=== PATIENT | female | born 1945 | race Caucasian/White ===

== ENCOUNTER → 2017-05-07 | Outpatient (CLI) | payer MEDICARE, OTHER ==
--- NOTE | 2017-05-07 16:07 | BD ---
EXAMINATION TYPE: MG DEXA axial skeleton. DATE OF EXAM: 05/07/2017 COMPARISON: 2010 CLINICAL HISTORY: 72-year-old female menopausal Height: 5'1/2 Weight: 174 FRAX RISK QUESTIONS: Alcohol (3 or more units per day): no Family History (Parent hip fracture): no Glucocorticoids (More than 3mos): no (Ex: prednisone, prednisolone, methylprednisolone, dexamethasone, and hydrocortisone). History of Fracture in Adulthood: no Secondary Osteoporosis: 1. Type 1 Diabetes: no 2. Hyperthyroidism: no 3. Menopause before 45: no 4. Malnutrition: no 5. Chronic liver disease: no Rheumatoid Arthritis: no Current Tobacco Use: no RISK FACTORS HISTORY OF: Diet low in dairy products/other sources of calcium: yes Postmenopausal woman: yes MEDICATIONS: Thyroid Medications: Which medication: Levothyroxine How Lon years Additional Medications: blood pressure, cholesterol, eye drops for glaucoma Additional History: menopausal EXAM MEASUREMENTS: Bone mineral densitometry was performed using the [employer]. Bone mineral density as measured about the Lumbar spine is: ----- L1-L4(G/cm2): 1.126 T Score Values are as follows: ----- L2: -0.8 ----- L3: 0.2 ----- L4: -0.6 ----- L1-L4: -0.5 Bone mineral density has: Decreased -1.1% since study of: 11/08/2010 Bone mineral density about the R hip (g/cm2): 0.868 Bone mineral density about the L hip (g/cm2): 0.823 T Score values are as follows: -----R Neck: -1.2 -----L Neck: -1.5 -----R Total: -0.1 -----L Total: -0.5 Bone mineral density has: Decreased -1.8% since study of: 11/08/2010 IMPRESSION: Osteopenia as indicated by T score values in both hips. There is slightly increased risk of fracture and the patient may be considered for treatment. Re-Screen 2-5 years. NOTE: T-SCORE=SD OF THE YOUNG ADULT MEAN.
--- NOTE | 2017-05-09 07:00 | MM ---
Reason for exam: screening (asymptomatic). Last mammogram was performed 3 years and 2 months ago. History: Patient is postmenopausal. Family history of premenopausal breast cancer in mother. Physical Findings: A clinical breast exam by your physician is recommended on an annual basis and results should be correlated with mammographic findings. MG Screening Mammo w CAD Bilateral CC and MLO view(s) were taken. Prior study comparison: March 04, 2014, bilateral MG screening mammo w CAD. January 04, 2012, bilateral digital screening mammo w/CAD. There are scattered fibroglandular densities. No significant changes when compared with prior studies. ASSESSMENT: Negative, BI-RAD 1 RECOMMENDATION: Routine screening mammogram of both breasts in 1 year.
== END | disposition home or self-care (01) ==
LOC: RADMAMWWP 12:59
PROVIDERS: ATTEND Family Medicine
DX: Z12.31 Encounter for screening mammogram for malignant neoplasm of breast (principal); M85.80 Other specified disorders of bone density and structure, unspecified site; Z78.0 Asymptomatic menopausal state
CPT/HCPCS: 77080; G0202

== ENCOUNTER → 2019-01-31 | Outpatient (CLI) | payer MEDICARE, OTHER ==
--- NOTE | 2019-02-03 10:25 | MM ---
Reason for exam: screening (asymptomatic). Last mammogram was performed 1 year and 9 months ago. History: Patient is postmenopausal. Family history of premenopausal breast cancer in mother. Physical Findings: A clinical breast exam by your physician is recommended on an annual basis and results should be correlated with mammographic findings. MG 3D Screening Mammo W/Cad Bilateral CC and MLO view(s) were taken. Prior study comparison: May 07, 2017, bilateral MG screening mammo w CAD. March 04, 2014, bilateral MG screening mammo w CAD. There are scattered fibroglandular densities. No significant changes when compared with prior studies. ASSESSMENT: Benign, BI-RAD 2 RECOMMENDATION: Routine screening mammogram of both breasts in 1 year.
== END ==
LOC: RADMAMWWP 13:19
PROVIDERS: ATTEND Family Medicine
DX: Z12.31 Encounter for screening mammogram for malignant neoplasm of breast (principal)
CPT/HCPCS: 77063; 77067

== ENCOUNTER 2024-10-23 12:26 | Day surgery (SDC) | payer MEDICARE, OTHER ==
[~2024-10-23 12:26] MED LIST: LACTATED RINGERS 1,000 ML IV SCH; LIDOCAINE 1% (10MG/ML) FOR IV START INTRADERMA PRN; ONDANSETRON 4 MG/2 ML VIAL IVP PRN; fentaNYL (PF) 50 MCG/ML 2 ML AMP IV PRN
[2024-10-23] MEDS: IV FLUID CONTINUATION 1,000 ML IV ONE (13:09)
[2024-10-23 13:18] VITALS: TEMP 97.8
[2024-10-23] MEDS: LIDOCAINE 2% INJ 20 MG/ML INTRATRACH ONE ×2 (13:21→13:36)
[2024-10-23] MEDS: LACTATED RINGERS 1,000 ML IV SCH (13:22)
[2024-10-23] MEDS ORDERED: LIDOCAINE 1% INJ 10MG/ML (20 ML MDV) ONE (13:28)
[2024-10-23] MEDS ORDERED: PROPOFOL 10 MG/ML 20 ML VIAL IV ONE (13:28)
[2024-10-23 13:56] VITALS: PULSE 93
[2024-10-23 14:16] VITALS: BP 161/73; RESP 16
--- NOTE | 2024-10-23 19:58 | OP ---
OPERATIVE REPORT DATE OF SERVICE : PROCEDURE: Bronchoscopy and bronchoalveolar lavage of the right upper lobe. PREOPERATIVE DIAGNOSIS: Hemoptysis. POSTOPERATIVE DIAGNOSIS: Hemoptysis secondary to fragile tracheobronchial mucosa. ANESTHESIA USED: IV conscious sedation. DESCRIPTION OF PROCEDURE: The patient was brought into the bronchoscopy suite, she was prepared as per protocol. O2 was applied via Ventimask. The patient was placed in the supine position, we monitored her O2 saturation continuously. Blood pressure was intermittently monitored, cardiac rhythm was continuously monitored. After adequate IV conscious sedation, the bronchoscope was inserted through the bite block down to the area of the vocal cords. Vocal cords were patent and normal. Lidocaine was applied over the vocal cords, and the bronchoscope was advanced further down. Thorough examination was done of the trachea, shari, right upper lobe, right middle lobe, right lower lobe, left upper lobe, lingula, and left lower lobe. There was no evidence of any endobronchial tumors to explain her hemoptysis. However, there was evidence of very friable mucosa and engorged small tiny blood vessels in the bronchial and tracheal mucosa. Again, the mucosa was very friable, and bleeding was noted to happen easily upon touching the mucosa, but no evidence of endobronchial pathology. No evidence of any significant purulent secretions except in the right upper lobe. Lavage of the right upper lobe was done, the procedure was well tolerated, no complications, and there was 0 blood loss. MMODL / IJN: [id number] /
[2024-10-24 21:31] LABS: Appearance,BF Cloudy (Clear); RBC, Body Fluid 295 /UL (0-2000)
[2024-10-27 09:18] LABS: Nucleated Cells, Body Fluid 10 /UL
== END 2024-10-23 14:30 | disposition home or self-care (01) ==
LOC: ORWHC2ENDO 12:26
PROVIDERS: ATTEND Internal Medicine
DX: D51.0 Vitamin B12 deficiency anemia due to intrinsic factor deficiency (principal); R04.2 Hemoptysis; R05.9 Cough, unspecified; I10 Essential (primary) hypertension; E78.5 Hyperlipidemia, unspecified; H35.30 Unspecified macular degeneration; E03.9 Hypothyroidism, unspecified; K21.9 Gastro-esophageal reflux disease without esophagitis; Z98.890 Other specified postprocedural states; Z88.1 Allergy status to other antibiotic agents; Z79.02 Long term (current) use of antithrombotics/antiplatelets; Z79.82 Long term (current) use of aspirin; Z79.899 Other long term (current) drug therapy
CPT/HCPCS: 88108; 88305; 89050; 87070; 87205; 87116; 87102; 87206; 31624; J2003 ×2; J2704; 31635; 87496; 87498; 87502; 87529; 87634; 87635; 87798